=== PATIENT | male | born 1975 | race Caucasian/White ===

== ENCOUNTER 2025-01-15 19:12 | Emergency (ER) | payer BC, MEDICAID ==
--- NOTE | 2025-01-15 21:25 | Physician Documentation ---
HPI ~ General Chief Complaint: Medication Request Stated Complaint: "OPIATE WITHDRAWL AND BELLY CRAMP" Time Seen by MD: 20:53 History of Present Illness HPI Comments This 49-year-old male presented requesting refill of Suboxone prescription, patient additionally reports epigastric cramping, patient reports that epigastric cramping has been intermittent for the past several weeks, normally improves with Zofran and rest. Medication Reconciliation Allergies: Coded Allergies: No Known Allergies (Unverified , 01/15/25) Scheduled Famotidine (Famotidine), 1 TAB PO Q12H Scheduled PRN ONDANSETRON ODT 4mg tablet (Ondansetron Odt), 1 TAB PO Q6H PRN PRN for nausea/vomiting Past Medical History Past Medical History: No Pertinent History Drug Use: other (Opioids) Review of Systems ROS As stated above in the HPI, otherwise all systems are reviewed and negative. Physical Exam Physical Exam Vital Signs: Temperature: 98.2, Source: Oral, Heart Rate: 60, Respiratory Rate: 18, BP: 141/81, Pulse Oximetry: 100 Oxygen Flow Rate: 0 Physical Exam VITALS: Reviewed and as above. GENERAL: Alert, nontoxic appearing, no apparent distress. RESPIRATORY: No increased work of breathing, no respiratory distress, speaking in full clear sentences, lung sounds in all [place] CV: Regular rate and rhythm no murmur BACK: No CVA tenderness GI: Nondistended, soft, nontender, no rebound, no guarding bowel sounds present Progress Results/Orders Results/Orders Orders - ROMI NEWTON Substance Use Navigator (01/15/25 21:12) Completed Orders - ROMI NEWTON Ondansetron Disint. Tablet (Zofran Odt T (01/15/25 21:10) Famotidine Tablet (Pepcid Tablet) (01/15/25 21:10) Mag & Alum Hydrox/Simeth Susp (Maalox Or (01/15/25 21:10) Buprenorphine/Naloxone Sl Film (Suboxone (01/15/25 21:10) Medications Received in ER Medications (Trade) Dose Ordered Sig/Mynor Route PRN Reason Start Time Stop Time Status Last Admin Dose Admin (Zofran ODT tablet) 4 mg ONCE ONCE PO 01/15/25 21:10 01/15/25 21:13 DC 01/15/25 21:31 4 MG (Pepcid tablet) 20 mg ONCE ONCE PO 01/15/25 21:10 01/15/25 21:13 DC 01/15/25 21:31 20 MG (Maalox oral suspension) 30 ml ONCE ONCE PO 01/15/25 21:10 01/15/25 21:13 DC 01/15/25 21:31 30 ML (Suboxone 8MG-2MG SL film) 1 film ONCE ONCE SL 01/15/25 21:10 01/15/25 21:13 DC 01/15/25 21:31 1 FILM Vital Signs 01/15/25 01/15/25 01/15/25 19:17 19:57 21:51 Temp 98.2 98.6 Pulse 78 60 59 Resp 16 18 16 B/P (MAP) 141/86 141/81 (101) 138/78 Pulse Ox 98 100 99 O2 Flow Rate 0 Medical Decision Making Findings This is a 49-year-old male presented requesting refill of Suboxone prescription, though cures report indicates patient currently has active prescription for Suboxone therefore refill will not be provided. Patient reported additional concern for upper abdominal cramping though this appears to be minor pain has been ongoing symptom for some time which patient is previously been seen for, physical exam did not demonstrate evidence of abdominal tenderness on exam making suspicion for intra-abdominal process low, patient is well-appearing with benign physical exam. Due to patient reporting abdominal symptoms decreasing after treatment with Zofran he will be provided dose of Zofran and antacid. Vital signs stable and patient is appropriate for outpatient follow up. Patient advised to follow up in the next few days with his primary care provider or [facility] and a referral was made to our substance use navigator. Patient provided return to care precautions. Patient verbalized understanding of follow up instructions and return to care precautions. Differential Dx:Considerations: Include: Adverse circumstances, Economic, Psychosocial, Medical services unavail., Medication refill, Medication non- compliance, Other (Gastritis, appendicitis, cholecystitis, pancreatitis, appendicitis, PUD, GERD) Departure Disposition: HOME / SELF CARE / HOMELESS Impression: Primary Impression: Medication refill Additional Impression: Epigastric pain Condition: Improved Discharge Instructions: Abdominal Pain, Adult, [id number] Additional Instructions: Unfortunately it appears you have an active Suboxone prescription so I am unable to refill this prescription at the moment. Please use the prescribed Zofran and antacids for epigastric pain. Please follow up with the primary care provider or [facility] in the next few days. Please return to the emergency department for any new or worsening concerning symptoms. Referrals: NO PRIMARY CARE PROVIDER (PCP) Prescriptions Famotidine (Famotidine) 20 Mg Tablet 1 TAB PO Q12H for 15 Days, #30 TAB 0 Refills Prov: ROMI NEWTON 01/15/25 ONDANSETRON ODT 4mg tablet (ONDANSETRON ODT) 4 Mg Tab.rapdis 1 TAB PO Q6H PRN PRN for nausea/vomiting for 4 Days, #16 TAB 0 Refills Prov: ROMI NEWTON 01/15/25 Education Educated: Patient Educated regarding: diagnosis, treatment, prognosis, need for follow up Signature Scribe Signature: No scribe Attestation: The note accurately reflects work and decisions made by me.SERA Collier 01/16/25 01:57 ROMI NEWTON Jan 15, 2025 21:25
[2025-01-15] MEDS ORDERED: FAMO-49 PO (21:27)
[2025-01-15] MEDS ORDERED: ONDA-243 PO (21:27)
[2025-01-15] MEDS: ondansetron 4mg rapidly disintigrating tab PO ONE (21:31)
[2025-01-15] MEDS: mag hydrox/Alum hydrox/simeth 30ml oral suspension PO ONE (21:31)
[2025-01-15] MEDS: famotidine 20mg tablet PO ONE (21:31)
[2025-01-15] MEDS: buprenorphine/naloxone 8MG-2MG SUBlingual film SL ONE (21:31)
[2025-01-15 21:51] VITALS: BP 138/78; PULSE 59; RESP 16; TEMP 98.6; O2SAT 99
[2025-01-17] MEDS ORDERED: SULF1TAB45 PO (15:52)
[2025-01-17] MEDS ORDERED: BUPR1FIL20 SL (15:52)
[2025-01-17] MEDS ORDERED: NALO4SPR22 BOTHNARES (15:52)
== END 2025-01-15 21:52 | disposition home or self-care (01) ==
LOC: ER 19:14
DX: R10.13 Epigastric pain (principal); Z76.0 Encounter for issue of repeat prescription
CPT/HCPCS: 99284

== ENCOUNTER → 2025-01-17 | Emergency (ER) | payer BC, MEDICAID ==
[~2025-01-17] VITALS: Ht 188 cm; Wt 75.8 kg
[~2025-01-17] MED LIST: BUPR1FIL20 SL; FAMO-49 PO; NALO4SPR22 BOTHNARES; ONDA-243 PO; SULF1TAB45 PO
[2025-01-17 14:47] VITALS: BP 130/74; PULSE 76; RESP 18; O2SAT 95
--- NOTE | 2025-01-17 15:06 | Physician Documentation ---
HPI ~ General Chief Complaint: Medication Request Stated Complaint: BUG BITE Time Seen by MD: 15:11 History of Present Illness HPI Comments This 49-year-old male with a history of opioid dependence presents back to the emergency department requesting Suboxone prescription and a dose of Suboxone as he is experiencing withdrawal symptoms. Patient was seen earlier this week for the same concern though was unable to have a prescription sent as he had active prescription for Suboxone and was directed to follow up with his MAT provider or [facility]. Patient additionally reported concern for a mosquito bite on his arm he believes is getting infected. Medication Reconciliation Allergies: Coded Allergies: No Known Allergies (Unverified , 01/15/25) Scheduled Buprenorphine HCl/Naloxone HCl (Buprenorphine-Nalox 8-2Mg Film), 1 STRIP SL DAILY Famotidine (Famotidine), 1 TAB PO Q12H Naloxone HCl (Naloxone HCl), 1 SPR BOTHNARES ONCE Sulfamethoxazole/Trimethoprim (Septra Ds Tab), 1 TAB PO Q12H Scheduled PRN ONDANSETRON ODT 4mg tablet (Ondansetron Odt), 1 TAB PO Q6H PRN PRN for nausea/vomiting Past Medical History Past Medical History: No Pertinent History Drug Use: other Review of Systems ROS Suboxone request and painful swollen area as stated above in the HPI, otherwise all systems are reviewed and negative. Physical Exam Physical Exam Vital Signs: Temperature: 98.4, Source: Temporal, Heart Rate: 76, Respiratory Rate: 18, BP: 130/74, Pulse Oximetry: 95, Weight: 75.800 Oxygen Flow Rate: 0 Physical Exam VITALS: Reviewed and as above. GENERAL: Alert, nontoxic appearing, no apparent distress. RESPIRATORY: No increased work of breathing, no respiratory distress, speaking in full clear sentences SKIN: Abrasion with 1 cm area of erythema and induration to dorsal aspect of right forearm without fluctuance or discharge Progress Results/Orders Results/Orders Orders - ROMI NEWTON Substance Use Navigator (01/17/25 15:37) Completed Orders - ROMI NEWTON Sulfamethox/Trimetho. Ds Tab (Septra Ds (01/17/25 15:40) Buprenorphine/Naloxone Sl Film (Suboxone (01/17/25 15:40) Vital Signs 01/17/25 01/17/25 14:47 16:18 Temp 98.4 98.4 Pulse 76 Resp 18 B/P (MAP) 130/74 Pulse Ox 95 O2 Flow Rate 0 Medical Decision Making Findings This 49-year-old male presented requesting Suboxone due to opiate withdrawal symptoms, patient is noted to have been previously on Suboxone to treat opiate use disorder, cures report was run in indicated patient out of current prescription for Suboxone and will have this refilled until he can follow up with a MAT program for continued management, referral to substance use navigator made. Patient additionally reported concern for an area to his right arm that he believes began as a mosquito bite that has become infected, physical exam of this area did demonstrate a small area of erythema and induration without fluctuance consistent with furuncle or similar superficial skin infection, given patient's history of MRSA he will be started on oral course of Bactrim. Patient provided home care instructions, return to care precautions, and follow up instructions which he verbalized understanding of. I have discussed with the patient the risks of addiction and overdose associated with use of opioids, including the increased risk of addiction to an opioid for an individual who is suffering from both mental and substance abuse disorders. I have discussed with the patient the danger of taking an opioid with a benzodiazepine, alcohol, or another central nervous system depressant. Patient additionally provided prescription for Narcan. Differential Dx:Considerations: Include: Adverse circumstances, Medical services unavail., Medication refill, Other (Cellulitis, abscess, opioid withdrawal, ) Departure Disposition: 01 HOME / SELF CARE / HOMELESS Impression: Primary Impression: Furuncle of right forearm Additional Impressions: Medication refill History of opioid abuse Condition: Improved Additional Instructions: Please take the antibiotics as prescribed, keep your wound clean dry and covered. Please use the prescribed Suboxone help with your withdrawal symptoms, please follow up with [facility] or a MAT provider in the next few days. A referral has been made to our substance use navigator who may be able to help you with resources. Please follow up with your primary care provider or [facility] in the next few days. Please return to the emergency department for any new or worsening concerning symptoms. You have been prescribed an opioid medication, there are risks of addiction and overdose associated with the use of opioids. The risk of addiction to an opioid for increases for those suffering both from mental health and substance use disorders. The use of an opioid while taking other central nervous system depressants including but not limited to benzodiazepines or alcohol, or other opioids increases the risk of serious side effects that can include overdose or respiratory depression that can lead to serious injury or . Referrals: NO PRIMARY CARE PROVIDER (PCP) Prescriptions Sulfamethoxazole/Trimethoprim (Septra Ds Tab) 800 Mg/160 Mg Tablet 1 TAB PO Q12H for 7 Days, #14 TAB Prov: ROMI NEWTON 01/17/25 Naloxone HCl (Naloxone HCl) 4 Mg/Actuation [place] 1 SPR BOTHNARES ONCE for 1 Day, #1 EA Prov: ROMI NEWTON 01/17/25 Buprenorphine HCl/Naloxone HCl (Buprenorphine-Nalox 8-2Mg Film) 8 Mg-2 Mg Film 1 STRIP SL DAILY for 7 Days, #7 STRIP 0 Refills Prov: ROMI NEWTON 01/17/25 Education Educated: Patient Educated regarding: diagnosis, treatment, prognosis, need for follow up Additional Comment Medical Screen Exam History: This 49-year-old male with a history of opioid dependence presents back to the emergency department requesting Suboxone prescription a dose of Suboxone as he is experiencing withdrawal symptoms. Patient was seen earlier this week for the same concern though was unable to have a prescription sent as he had active prescription for Suboxone and was directed to follow up with his MAT provider. Patient additionally reported concern for a mosquito bite on his arm he believes is getting infected. Exam: VITALS: Reviewed and as above. GENERAL: Alert, nontoxic appearing, no apparent distress. RESPIRATORY: No increased work of breathing, no respiratory distress, speaking in full clear sentences MSE performed in triage and patient returned to ED lobby by nursing staff The note accurately reflects work and decisions made by me.SERA Collier 01/17/25 15:05 Signature Scribe Signature: No scribe Attestation: The note accurately reflects work and decisions made by me.SERA Collier 01/18/25 02:08 ROMI NEWTON Jan 17, 2025 15:06
[2025-01-17] MEDS: sulfamethoxazole/trimethoprim DS (800/160mg) tablet PO ONE (16:08)
[2025-01-17] MEDS: buprenorphine/naloxone 8MG-2MG SUBlingual film SL ONE (16:08)
[2025-01-17 16:18] VITALS: TEMP 98.4
== END | disposition home or self-care (01) ==
LOC: ER 14:42
DX: L02.423 Furuncle of right upper limb (principal); Z76.0 Encounter for issue of repeat prescription; F11.20 Opioid dependence, uncomplicated
CPT/HCPCS: 99283

== ENCOUNTER 2025-01-28 10:29 | Emergency (ER) | payer BC, MEDICAID ==
[~2025-01-28] VITALS: Ht 177.8 cm; Wt 79.5 kg
[~2025-01-28 10:29] MED LIST changes: -SULF1TAB45 PO
[2025-01-28 10:31] VITALS: BP 130/76; PULSE 78; RESP 18; TEMP 97.5; O2SAT 99
[2025-01-28] MEDS ORDERED: BUPR1FIL3 SL (10:34)
[2025-01-28] MEDS ORDERED: ONDA-245 PO (10:35)
--- NOTE | 2025-01-28 10:35 | Physician Documentation ---
HPI ~ General Chief Complaint: Medication Refill Stated Complaint: OPIOD WITHDRAWAL Time Seen by MD: 10:33 History of Present Illness HPI Comments 49 yr old male presents due to concerns for running out of his suboxone. Typically takes 8/2 one film BID. Has been unable to establish with PCP. Endorses nausea.No chills or fever or CP/dyspnea. Medication Reconciliation Allergies: Coded Allergies: No Known Allergies (Unverified , 01/28/25) Scheduled Buprenorphine HCl/Naloxone HCl (Buprenorphine-Nalox 8-2Mg Film), 1 STRIP SL DAILY Buprenorphine Hcl/Naloxone Hcl (Suboxone 8 Mg-2 Mg Sl Film), 1 STRIP SL BID Famotidine (Famotidine), 1 TAB PO Q12H Naloxone HCl (Naloxone HCl), 1 SPR BOTHNARES ONCE Scheduled PRN ONDANSETRON ODT 4mg tablet (Ondansetron Odt), 1 TAB PO Q6H PRN PRN for nausea/vomiting Ondansetron 8mg ODT (Ondansetron Odt), 1 TAB PO TID PRN for nausea/vomiting Discontinued Medications Sulfamethoxazole/Trimethoprim (Septra Ds Tab), 1 TAB PO Q12H Discontinued Reason: Auto Discontinued Past Medical History Past Medical History: No Pertinent History Drug Use: other Review of Systems ROS As stated above in the HPI, otherwise all systems are reviewed and negative. Physical Exam Physical Exam Vital Signs: Temperature: 97.5, Source: Temporal, Heart Rate: 78, Respiratory Rate: 18, BP: 130/76, Pulse Oximetry: 99, Weight: 79.550 Oxygen Flow Rate: 0 Physical Exam General: Alert, no apparent distress. Neck: Full range of motion. Respiratory: Lungs clear, no respiratory distress. Chest: No accessory muscle use. Cardiovascular: Regular rate and rhythm, no murmurs. Gastrointestinal: Soft, nontender, nondistended. Bowels sounds present. Extremities: Normal range of motion, no deformity. Neurologic: Oriented x4. Psychiatric: Normal mood and affect. Skin: Normal color, warm and dry. No edema, no ecchymosis. Progress Results/Orders Results/Orders Orders - MANDY SCHWAB NP Substance Use Navigator (01/28/25 10:51) Completed Orders - MANDY SCHWAB NP Ondansetron Disint. Tablet (Zofran Odt T (01/28/25 10:40) Buprenorphine/Naloxone Sl Film (Suboxone (01/28/25 10:40) Buprenorphine/Naloxone Sl Film (Suboxone (01/28/25 10:40) Medications Received in ER Medications (Trade) Dose Ordered Sig/Mynor Route PRN Reason Start Time Stop Time Status Last Admin Dose Admin (Zofran ODT tablet) 4 mg ONCE ONCE PO 01/28/25 10:40 01/28/25 10:41 DC 01/28/25 10:58 4 MG (Suboxone 8MG-2MG SL film) 1 film NOW ONCE SL 01/28/25 10:40 01/28/25 10:42 DC 01/28/25 10:59 1 FILM Vital Signs 01/28/25 10:31 Temp 97.5 Pulse 78 Resp 18 B/P (MAP) 130/76 Pulse Ox 99 O2 Flow Rate 0 Medical Decision Making Differential Dx:Considerations: Include: Adverse circumstances, Economic, Psychosocial, Medical services unavail., Medication refill, Medication non- compliance Departure Time of Disposition: 10:33 Disposition: HOME / SELF CARE / HOMELESS Impression: Primary Impression: History of opioid abuse Additional Impression: Medication refill Condition: Stable Discharge Instructions: Opioid Use Disorder, Opioid Withdrawal Referrals: NO PRIMARY CARE PROVIDER (PCP) Prescriptions Ondansetron 8mg ODT (Ondansetron Odt) 8 Mg Tab.rapdis 1 TAB PO TID PRN for nausea/vomiting, #10 TAB Prov: MANDY SCHWAB NP 01/28/25 Buprenorphine Hcl/Naloxone Hcl (Suboxone 8 Mg-2 Mg Sl Film) 8 Mg-2 Mg Film 1 STRIP SL BID for 10 Days, #20 STRIP Prov: MANDY SCHWAB NP 01/28/25 Education Educated: Patient Educated regarding: diagnosis, treatment, prognosis, need for follow up Signature Scribe Signature: no scribe Attestation: The note accurately reflects work and decisions made by me.Mandy Syed NP 01/28/25 11:11 MANDY SCHWAB NP Jan 28, 2025 10:35
[2025-01-28] MEDS ORDERED: buprenorphine/naloxone 8MG-2MG SUBlingual film SL SCH (10:40)
[2025-01-28] MEDS: ondansetron 4mg rapidly disintigrating tab PO ONE (10:58)
[2025-01-28] MEDS: buprenorphine/naloxone 8MG-2MG SUBlingual film SL ONE (10:59)
== END 2025-01-28 11:08 | disposition home or self-care (01) ==
LOC: ER 10:30
DX: F11.10 Opioid abuse, uncomplicated (principal); R11.0 Nausea; Z76.0 Encounter for issue of repeat prescription; Z79.899 Other long term (current) drug therapy
CPT/HCPCS: 99283

== ENCOUNTER 2025-02-26 10:29 | Emergency (ER) | payer BC, MEDICAID ==
[~2025-02-26] VITALS: Ht 188 cm; Wt 75.0 kg
[~2025-02-26 10:29] MED LIST changes: +ONDA-245 PO
[2025-02-26 10:38] VITALS: BP 128/60; PULSE 82; RESP 17; TEMP 98; O2SAT 98
== END 2025-02-26 14:15 | disposition left against medical advice (07) ==
LOC: ER 10:30
DX: R10.31 Right lower quadrant pain (principal); Z53.21 Procedure and treatment not carried out due to patient leaving prior to being seen by health care provider

== ENCOUNTER 2025-03-05 03:00 | Emergency (ER) | payer BC, MEDICAID ==
[~2025-03-05] VITALS: Ht 188 cm; Wt 51.8 kg
--- NOTE | 2025-03-05 04:41 | Physician Documentation ---
History of Present Illness ~ Chief Complaint: Narcotic Withdrawl Stated Complaint: WITHDRAWALS Time Seen by MD: 04:25 OK to notify your PCP?: Yes Source: patient, RN/MD, RN notes reviewed, old records Mode of Arrival: POV Exam Limitations: no limitations [facility] BED 04 This patient is a 50 y/o male who presents to ED with chief complaint of narcotic withdrawal. Patient reports that he has been taking Suboxone for opioid addiction treatment. Patient states he missed his last appointment at [facility], and they are now refusing to refill his Suboxone pr escription. Patient's next appointment is in two weeks. He reports his last dose of Suboxone was yesterday. He is now having some nausea, diarrhea, anxiety. No vomiting or fevers. Patient also complaining of a small, raised bump to his chin which he noticed yesterday, and states it has been getting more painful since then. No discharge or bleeding. Patient denies any other associated symptoms at this time. Patient denies any other alleviating or exacerbating factors. Medication Reconciliation Allergies: Coded Allergies: No Known Allergies (Unverified , 03/05/25) Scheduled Buprenorphine HCl/Naloxone HCl (Buprenorphine-Nalox 8-2Mg Film), 1 STRIP SL DAILY Buprenorphine Hcl/Naloxone Hcl (Suboxone 8 Mg-2 Mg Sl Film), 2 STRIP SL DAILY Famotidine (Famotidine), 1 TAB PO Q12H Naloxone HCl (Naloxone HCl), 1 SPR BOTHNARES ONCE Scheduled PRN ONDANSETRON ODT 4mg tablet (Ondansetron Odt), 1 TAB PO Q6H PRN PRN for nausea/vomiting ONDANSETRON ODT 4mg tablet (Ondansetron Odt), 1 TAB PO Q6H PRN PRN for nausea/vomiting Ondansetron 8mg ODT (Ondansetron Odt), 1 TAB PO TID PRN for nausea/vomiting Past Medical History Past Medical History: No Pertinent History Past Surgical History: noncontributory Smoking Status: Current every day smoker Alcohol Use: None Drug Use: other Review of Systems All Other Systems at this time: Reviewed and Negative Physical Exam Vital Signs: RN Vital Signs have been reviewed: Yes, Temperature: 97.6, Source: Temporal, Heart Rate: 71, Respiratory Rate: 15, BP: 127/69, Pulse Oximetry: 99, Weight: 51.800 Physical Exam General: The patient is well developed, well nourished, nontoxic appearing and is in no acute distress. Skin: Ingrown hair noted to chin. [place], warm and dry with no rashes. HEENT: Head was normocephalic and atraumatic. Eyes - pupils equal, round, reactive to light and accommodation. Extraocular movements were intact. Conjunctivae were nonicteric. The mouth and oropharynx were clear with moist mucous membranes. There were no pharyngeal exudates or erythema. Neck: Supple and nontender. There was no jugular venous distention, lymphadenopathy, thyromegaly or masses. Chest: Trace wheezing on auscultation. Otherwise no rales or rhonchi. No accessory muscle use. No dullness to percussion. Heart: Rate regular and rhythmic. S1, S2. No murmurs. Palpation of the chest wall was normal. No rubs or thrills. Abdomen: Soft, nontender and nondistended. Positive bowel sounds. No guarding or rebound. No hepatosplenomegaly or palpable masses. Extremities: No cyanosis, clubbing or edema. The patient moves all extremities. Pulses were equal and symmetric. Neurologic: Motor and sensation grossly intact. A & O x4. Psychologic: The patient was oriented to person, place and time. Progress Results/Orders Reviewed/noted all lab results: Yes Results/Orders Completed Orders - JCARLOS JIMENEZ MD Ondansetron Disint. Tablet (Zofran Odt T (03/05/25 04:50) Buprenorphine/Naloxone Sl Film (Suboxone (03/05/25 04:50) Medications Received in ER Medications (Trade) Dose Ordered Sig/Mynor Route PRN Reason Start Time Stop Time Status Last Admin Dose Admin (Zofran ODT tablet) 4 mg ONCE ONCE PO 03/05/25 04:50 03/05/25 04:51 DC 03/05/25 05:06 4 MG (Suboxone 8MG-2MG SL film) 2 film ONCE ONCE SL 03/05/25 04:50 03/05/25 04:54 DC 03/05/25 05:07 2 FILM Vital Signs 03/05/25 03/05/25 03:03 05:09 Temp 97.6 97.8 Pulse 71 76 Resp 15 16 B/P (MAP) 127/69 136/86 Pulse Ox 99 98 Re-Evaluation Re-Evaluation : Re-Evaluation: Improved Progress Patient was seen and examined. Patient is given reassurance. Patient was given Zofran as well as Suboxone. Patient states he takes three strips. Patient was given to [facility] and a prescription for the same. Patient has not appointment in weak with his pain management physicians. Patient was given a prescription also for the same including Zofran. Patient was then discharged home. He states he did have some diarrhea but no bile erection no vomiting he is tolerating a meal. Medical Decision Making Additional info obtained from: old records Differential Dx:Considerations: Include: Delerium tremens, Hallucinosis, Seizures, Anticholinergic poisoning, CVA, Dehydration, Depression, Drug induced psychosis, Electolyte imbalance, Encephalitis, Encephalopathy, Intoxication- alcohol, Intoxication-other drug, Medical noncompliance, Personality disorder, Schizophrenia, Seizure disorder, Substance abuse disorder, Thiamine deficiency, Thyrotoxicosis, Other Departure Time of Disposition: 04:44 Disposition: 01 HOME / SELF CARE / HOMELESS Impression: Primary Impression: Narcotic withdrawal Additional Impressions: Medication refill Ingrown hair Condition: Stable Discharge Instructions: Narcotic Withdrawal Additional Instructions: Take medications as prescribed. Keep next appointment to sure that you can obtain future refills of your Suboxone. Referrals: NO PRIMARY CARE PROVIDER (PCP) Prescriptions Buprenorphine Hcl/Naloxone Hcl (Suboxone 8 Mg-2 Mg Sl Film) 8 Mg-2 Mg Film 2 STRIP SL DAILY for 15 Days, #30 STRIP Prov: JCARLOS JIMENEZ MD 03/05/25 ONDANSETRON ODT 4mg tablet (ONDANSETRON ODT) 4 Mg Tab.rapdis 1 TAB PO Q6H PRN PRN for nausea/vomiting for 4 Days, #16 TAB 0 Refills Prov: JCARLOS JIMENEZ MD 03/05/25 Naloxone HCl (Naloxone HCl) 4 Mg/Actuation [place] 1 SPR BOTHNARES ONCE for 1 Day, #1 EA Prov: JCARLOS JIMENEZ MD 03/05/25 Education Educated: Patient Educated regarding: diagnosis, treatment, need for follow up Signature Scribe Signature: Scribed for Jcarlos Jimenez MD by Anita Newton 03/05/25 04:44 Attestation: The note accurately reflects work and decisions made by me.Jcarlos Jimenez MD 03/05/25 05:43 JCARLOS JIMENEZ MD Mar 05, 2025 04:41
[2025-03-05] MEDS ORDERED: BUPR1FIL3 SL (04:50)
[2025-03-05] MEDS ORDERED: ONDA-243 PO (04:50)
[2025-03-05] MEDS ORDERED: buprenorphine/naloxone 8MG-2MG SUBlingual film SL SCH (04:50)
[2025-03-05] MEDS ORDERED: NALO4SPR22 BOTHNARES (04:50)
[2025-03-05] MEDS: ondansetron 4mg rapidly disintigrating tab PO ONE (05:06)
[2025-03-05] MEDS: buprenorphine/naloxone 8MG-2MG SUBlingual film SL ONE (05:07)
[2025-03-05 05:09] VITALS: BP 136/86; PULSE 76; RESP 16; TEMP 97.8; O2SAT 98
== END 2025-03-05 05:12 | disposition home or self-care (01) ==
LOC: ER 03:01
DX: F11.23 Opioid dependence with withdrawal (principal); L73.1 Pseudofolliculitis barbae; Z76.0 Encounter for issue of repeat prescription; F17.200 Nicotine dependence, unspecified, uncomplicated; F41.9 Anxiety disorder, unspecified; Z79.899 Other long term (current) drug therapy
CPT/HCPCS: 99283

== ENCOUNTER 2025-03-23 02:56 | Emergency (ER) | payer BC, MEDICAID ==
[~2025-03-23] VITALS: Ht 185.4 cm; Wt 56.1 kg
[2025-03-23] MEDS ORDERED: TRIA15CR61 TOP (03:52)
--- NOTE | 2025-03-23 03:52 | Physician Documentation ---
History of Present Illness ~ Chief Complaint: Rash Stated Complaint: STOMACH PAINS/WITHDRAWALS/BUMPS ON LEGS Time Seen by MD: 03:45 HPI Patient presents to the emergency room with rash to his lower extremities over the past few days. He is concerned that it may be related to possible bug bites. He does endorse poison oak exposure as well. Taking Benadryl with limited benefit. Medication Reconciliation Allergies: Coded Allergies: No Known Allergies (Unverified , 03/23/25) Scheduled Buprenorphine HCl/Naloxone HCl (Buprenorphine-Nalox 8-2Mg Film), 1 STRIP SL DAILY Famotidine (Famotidine), 1 TAB PO Q12H Naloxone HCl (Naloxone HCl), 1 SPR BOTHNARES ONCE Scheduled PRN ONDANSETRON ODT 4mg tablet (Ondansetron Odt), 1 TAB PO Q6H PRN PRN for nausea/vomiting ONDANSETRON ODT 4mg tablet (Ondansetron Odt), 1 TAB PO Q6H PRN PRN for nausea/vomiting Ondansetron 8mg ODT (Ondansetron Odt), 1 TAB PO TID PRN for nausea/vomiting Discontinued Medications Buprenorphine Hcl/Naloxone Hcl (Suboxone 8 Mg-2 Mg Sl Film), 2 STRIP SL DAILY Discontinued Reason: Auto Discontinued Past Medical History Past Medical History: No Pertinent History Past Surgical History: noncontributory Alcohol Use: None Drug Use: other Review of Systems ROS All review of systems negative except as per HPI Physical Exam Vital Signs: Temperature: 97.6, Heart Rate: 88, Respiratory Rate: 15, BP: 120/65, Pulse Oximetry: 98, Weight: 56.100 Physical Exam General: Patient is awake, alert, oriented x4 in no acute distress Head: Normocephalic and atraumatic. Eyes: Conjunctival normal. EOMI. PERRL. ENT: Mucous membranes moist. Neck: Supple, trachea is midline. Chest: Clear to auscultation bilaterally without rales, rhonchi, or wheezes. There is no accessory muscle use or retractions. Cardiac: RRR without murmurs, gallops, or rubs. Abd: Soft, nondistended, nontender, with normoactive bowel sounds. No guarding, rebound, or rigidity. Skin: Excoriations noted to bilateral lower extremities. No blistering or cellulitis Progress Results/Orders Results/Orders Vital Signs 03/23/25 03:02 Temp 97.6 Pulse 88 Resp 15 B/P (MAP) 120/65 Pulse Ox 98 Medical Decision Making Findings Patient presents to the emergency room with pruritic rash. Differentials include but are not limited to insect bites, poison oak, contact dermatitis, medication reaction. Unknown cause for patient's symptoms. We will treat him empirically for poison oak. Although considered, no bedbugs has been seen and distribution that has not consistent with scabies. Departure Disposition: HOME / SELF CARE / HOMELESS Impression: Primary Impression: Allergic contact dermatitis Condition: Stable Discharge Instructions: Contact Dermatitis Referrals: NO PRIMARY CARE PROVIDER (PCP) Prescriptions Triamcinolone Acetonide 0.5% Crm* (Kenalog 0.5% Crm*) 15 Gm Tube 1 APPLIC TOP Q12H for 30 Days, #15 GM apply to affected area(s). Avoid contact with the genitals or eyelids Prov: JAQUAN AWAD MD 03/23/25 Education Educated: Patient Educated regarding: diagnosis, treatment, need for follow up Signature Scribe Signature: No scribe Attestation: The note accurately reflects work and decisions made by me.Jaquan Awad MD 03/23/25 03:52 JAQUAN AWAD MD Mar 23, 2025 03:52
[2025-03-23 04:08] VITALS: BP 120/68; PULSE 82; RESP 18; TEMP 97.4; O2SAT 98
[2025-03-23] MEDS: buprenorphine/naloxone 8MG-2MG SUBlingual film SL ONE (04:30)
== END 2025-03-23 04:31 | disposition home or self-care (01) ==
LOC: ER 02:56
DX: L23.7 Allergic contact dermatitis due to plants, except food (principal)
CPT/HCPCS: 99283

== ENCOUNTER 2025-04-01 08:58 | Emergency (ER) | payer BC, MEDICAID ==
[~2025-04-01] VITALS: Ht 188 cm; Wt 81.8 kg
[~2025-04-01 08:58] MED LIST changes: +TRIA15CR61 TOP
[2025-04-01 09:03] VITALS: BP 151/84; TEMP 98.5
--- NOTE | 2025-04-01 10:28 | Physician Documentation ---
History of Present Illness ~ General Chief Complaint: Multiple Medical Complaints Stated Complaint: POISON OAK Time Seen by MD: 10:02 OK to notify your PCP?: Yes Source: patient Mode of Arrival: POV Exam Limitations: no limitations History of Present Illness Initial Comments 50-year-old male with chief complaint itchy rash on his legs arms and back which he states has almost resolved but he is out of the steroid cream and he is not sure if he needs this to be refilled. He states the itching is virtually 90% better. He is concerned about the rash behind his left knee as he states it has gotten a little swollen and he is concerned that there is an infection that has coming in. No fever, pain. Patient also reports a bulge in his right groin which has been there for quite some time but recently it has gotten painful when his dog steps on the area or if there is any other direct pressure to the area. There was no overlying redness. He has had this bulge for years but states just getting larger and recently became painful with pressure to area. He does have a primary care provider but has not been seen for this. Medication Reconciliation Allergies: Coded Allergies: No Known Allergies (Unverified , 04/01/25) Scheduled Buprenorphine HCl/Naloxone HCl (Buprenorphine-Nalox 8-2Mg Film), 1 STRIP SL DAILY Famotidine (Famotidine), 1 TAB PO Q12H Naloxone HCl (Naloxone HCl), 1 SPR BOTHNARES ONCE Triamcinolone Acetonide 0.5% Crm* (Kenalog 0.5% Crm*), 1 APPLIC TOP Q12H Scheduled PRN ONDANSETRON ODT 4mg tablet (Ondansetron Odt), 1 TAB PO Q6H PRN PRN for nausea/vomiting ONDANSETRON ODT 4mg tablet (Ondansetron Odt), 1 TAB PO Q6H PRN PRN for nausea/vomiting Ondansetron 8mg ODT (Ondansetron Odt), 1 TAB PO TID PRN for nausea/vomiting Past Medical History Past Medical History: No Pertinent History Past Surgical History: noncontributory Alcohol Use: None Drug Use: other Review of Systems All Other Systems at this time: Reviewed and Negative Physical Exam Physical Exam Vital Signs: Temperature: 98.5, Source: Oral, Heart Rate: 66, Respiratory Rate: 18, BP: 151/84, Pulse Oximetry: 99, Weight: 81.820 Physical Exam GENERAL: Alert, no acute distress. HEENT: NCAT, EOMI, PERRL, moist oral mucosa. NECK: Supple, trachea midline. CARDIAC: Regular rate and rhythm, no murmurs, rubs, or gallops. Equal distal pulses. No lower extremity edema, cap refill less than 2 seconds. RESPIRATORY: Equal breath sounds, clear to auscultation bilaterally, no respiratory distress. GASTROINTESTINAL: RIGHT GROIN LARGE BULGE NO ERYTHEMA OR WARTH, AREA IS SOFT, TTP, NOT REDUCIBLE. LYMPH: NO FEMORAL LAD. MUSCULOSKELETAL: Normal range of motion, nontender, no swelling. Normal gait. NEUROLOGICAL: Awake, alert, and oriented x 3. SKIN: Warm/dry, no pallor, MACULAR ERYTHEMATOUS RASH BEHIND LEFT KNEE MEASURING ABOUT 3CM IN LENGTH AND OTHER SCATTERED STREAKY MACULOPAPULAR ERYTHEMATOUS RASHES ON EXTREMITIES. PSYCH: Alert and appropriate. Affect congruent with mood. Speech is clear. Good eye contact. Progress Results/Orders Results/Orders Vital Signs 04/01/25 09:03 Temp 98.5 Pulse 66 Resp 18 B/P (MAP) 151/84 Pulse Ox 99 Medical Decision Making Differential Diagnosis THE BULGE AND PATIENT'S GROIN IS CONSISTENT WITH A HERNIA THERE WAS NO EVIDENCE FOR STRANGULATION THE AREA IS SOFT, NO OVERLYING ERYTHEMA AND ONLY TENDER WITH PALPATION. SKIN FINDINGS ON EXAM IN DIFFERENTIAL IS SCABIES, ABSCESS, CELLULITIS, CONTACT DERMATITIS, ECZEMA, AUTOIMMUNE. PATIENT HAS NO EVIDENCE FOR ANY OF THE ABOVE. HE HAS SCATTERED SORES AND AREAS THAT ARE RESOLVING FROM HIS RECENT CONTACT DE RMATITIS. Departure Time of Disposition: Disposition: 01 HOME / SELF CARE / HOMELESS Impression: Primary Impression: Allergic contact dermatitis Qualified Codes: L23.7 - Allergic contact dermatitis due to plants, except food Additional Impression: Hernia Condition: Stable Discharge Instructions: General Discharge Instructions Additional Instructions: The itching has almost resolved and I would not recommend continued steroid cream if the itching has virtually resolved as steroids can cause thinning of the skin with prolonged use and your itching has virtually resolved For the areas where you have small breaks in the skin you can clean them them with hibiclens to prevent from getting infection I do not appreciate any infection at this time and thus oral antibiotics not needed The hibiclens can also cause itching of the skin if you over do it so please use sparingly RE: YOUR LARGE HERNIA THAT IS INCARCERATED.....THERE IS NO INDICATION TODAY THAT NEEDS TO BE SURGICALLY FIXED TODAY; HOWEVER, YOU NEED TO GET TO REFERRAL BY YOUR PCP. CONSIDERING THE HERNIA IS VERY OBVIOUS ON EXAM, YOU DO NOT NEED IMAGING. HAVE REFERRAL PLACED TO [facility] [place] THAT TAKES YOUR INSURANCE. DR. JORDAN IS A SURGEON WHO TAKES YOUR INSURANCE AND WOULD NOT REQUIRE IMAGING TO BE ASSOCIATED WITH THE REFERRAL AND YOUR PCP CAN SEND THIS REFERRAL OR TO ANOTHER PCP. Referrals: NO PRIMARY CARE PROVIDER (PCP) Prescriptions Chlorhexidine Gluconate (Hibiclens) 4 % Liquid 1 EA TOP DAILY for 7 Days, #3785.41 ML 0 Refills DIRECTED Prov: DELMAR POSEY 04/01/25 Education Educated: Patient Educated regarding: diagnosis, treatment, need for follow up Signature Scribe Signature: X Attestation: DELMAR HONEYCUTT Apr 01, 2025 10:28
[2025-04-01] MEDS ORDERED: CHLO118L TOP (10:29)
[2025-04-01 11:01] VITALS: PULSE 68; RESP 18; O2SAT 98
== END 2025-04-01 11:02 | disposition home or self-care (01) ==
LOC: ER 08:58
DX: L23.7 Allergic contact dermatitis due to plants, except food (principal); K46.9 Unspecified abdominal hernia without obstruction or gangrene
CPT/HCPCS: 99282

== ENCOUNTER 2025-04-27 13:59 | Emergency (ER) | payer BC, MEDICAID ==
[~2025-04-27] VITALS: Ht 188 cm; Wt 81.8 kg
[~2025-04-27 13:59] MED LIST changes: +CHLO118L TOP; -TRIA15CR61 TOP
[2025-04-27 14:13] VITALS: BP 142/76; PULSE 87; RESP 16; O2SAT 98
--- NOTE | 2025-04-27 16:22 | Physician Documentation ---
History of Present Illness General Chief Complaint: Bite-insect Stated Complaint: FACE WOUND Time Seen by MD: 14:52 History of Present Illness Initial Comments 50-year-old male otherwise healthy the medial competent presents to the emergency department for evaluation of a chin lesion. Reports it began as a bug bite developed redness and swelling and then began having some pustule type d ischarge. Addition develop the same lesion on his back. Wonders if he has a staph infection. Medication Reconciliation Allergies: Coded Allergies: No Known Allergies (Unverified , 04/27/25) Scheduled Buprenorphine HCl/Naloxone HCl (Buprenorphine-Nalox 8-2Mg Film), 1 STRIP SL DAILY Chlorhexidine Gluconate (Hibiclens), 1 EA TOP DAILY Doxycycline Monohydrate (Doxycycline Monohydrate), 100 MG PO BID Famotidine (Famotidine), 1 TAB PO Q12H Mupirocin* (Bactroban*), 1 APPLIC TOP Q8H Naloxone HCl (Naloxone HCl), 1 SPR BOTHNARES ONCE Scheduled PRN ONDANSETRON ODT 4mg tablet (Ondansetron Odt), 1 TAB PO Q6H PRN PRN for nausea/vomiting ONDANSETRON ODT 4mg tablet (Ondansetron Odt), 1 TAB PO Q6H PRN PRN for nausea/vomiting Ondansetron 8mg ODT (Ondansetron Odt), 1 TAB PO TID PRN for nausea/vomiting Discontinued Medications Triamcinolone Acetonide 0.5% Crm* (Kenalog 0.5% Crm*), 1 APPLIC TOP Q12H Discontinued Reason: Auto Discontinued Past Medical History Past Medical History: No Pertinent History Past Surgical History: noncontributory Alcohol Use: None Drug Use: other Review of Systems All Other Systems at this time: Reviewed and Negative Constitutional: Denies: fever, chills Integ: Reports: rash Integumentary Erythemic with pustule Physical Exam Physical Exam Vital Signs: Temperature: 97.3, Source: Temporal, Heart Rate: 87, Respiratory Rate: 16, BP: 142/76, Pulse Oximetry: 98, Weight: 81.820 General Appearance: alert, WD/WN Head: normal inspection Pupils/EOM/Fundus: PERRLA Respiratory: no respiratory distress Cardiovascular: normal peripheral pulses Back: other Extremities: normal range of motion Neurologic: oriented x4 Motor / Sensory: no motor deficit Skin: normal color, rash, pustular rash (Pustular rash with erythema of the chin and back) Progress Results/Orders Results/Orders Vital Signs 04/27/25 04/27/25 14:13 17:09 Temp 97.3 97.3 Pulse 87 Resp 16 B/P (MAP) 142/76 Pulse Ox 98 Medical Decision Making Differential Diagnosis Examination and history consistent with impetigo. We will go ahead and begin Bactroban and Departure Disposition: HOME / SELF CARE / HOMELESS Impression: Primary Impression: Impetigo Condition: Improved Discharge Instructions: Impetigo, Adult Additional Instructions: Examination & history is consistent with impetigo. Please apply topical warm moist soaks and ointment along with begin the oral antibiotic. Make follow up appointment with the primary care physician and return to the emergency department as needed. Thank you for visiting [facility]. Referrals: NO PRIMARY CARE PROVIDER (PCP) Prescriptions Doxycycline Monohydrate (Doxycycline Monohydrate) 100 Mg Capsule 100 MG PO BID, #20 CAP may sub doxycycline hyclate or azithromycin z-pack as prescribed Prov: ALFONSO CURRAN 04/27/25 Mupirocin* (Bactroban*) 22 Gm Tube 1 APPLIC TOP Q8H for 7 Days, #22 GM apply to affected area(s) Prov: ALFONSO CURRAN 04/27/25 Education Educated: Patient Educated regarding: diagnosis Signature Scribe Signature: . Attestation: . ALFONSO CURRAN Apr 27, 2025 16:22
[2025-04-27] MEDS ORDERED: DOXY100C43 PO (16:28)
[2025-04-27] MEDS ORDERED: MUPI22OI30 TOP (16:28)
[2025-04-27 17:09] VITALS: TEMP 97.3
== END 2025-04-27 17:11 | disposition home or self-care (01) ==
LOC: ER 13:59
DX: L01.00 Impetigo, unspecified (principal); Z79.899 Other long term (current) drug therapy
CPT/HCPCS: 99283

== ENCOUNTER 2025-05-10 17:29 | Emergency (ER) | payer MEDICARE, MEDICAID ==
[~2025-05-10] VITALS: Ht 188 cm; Wt 75.7 kg
[~2025-05-10 17:29] MED LIST changes: +DOXY100C43 PO
[2025-05-10 17:37] VITALS: BP 143/82; PULSE 80; RESP 18; O2SAT 99
--- NOTE | 2025-05-10 17:54 | Physician Documentation ---
History of Present Illness ~ Chief Complaint: Rash Stated Complaint: SPIDER BITE Time Seen by MD: 17:48 HPI This is a 50-year-old male who presents with a pruritic rash to his upper chest and several areas of raised itchy bumps on his forearms and back. Patient reports onset of symptoms yesterday after using a string tremor to clear brush. Patient reports no other acute symptoms or concerns. Medication Reconciliation Allergies: Coded Allergies: No Known Allergies (Unverified , 05/10/25) Scheduled Buprenorphine HCl/Naloxone HCl (Buprenorphine-Nalox 8-2Mg Film), 1 STRIP SL GURINDER LY Chlorhexidine Gluconate (Hibiclens), 1 EA TOP DAILY Doxycycline Monohydrate (Doxycycline Monohydrate), 100 MG PO BID Famotidine (Famotidine), 1 TAB PO Q12H Naloxone HCl (Naloxone HCl), 1 SPR BOTHNARES ONCE Triamcinolone Acetonide 0.1% Crm* (Kenalog 0.1% Crm*), 1 APPLIC TOP Q12H Scheduled PRN ONDANSETRON ODT 4mg tablet (Ondansetron Odt), 1 TAB PO Q6H PRN PRN for jeff sea/vomiting ONDANSETRON ODT 4mg tablet (Ondansetron Odt), 1 TAB PO Q6H PRN PRN for nausea/vomiting Ondansetron 8mg ODT (Ondansetron Odt), 1 TAB PO TID PRN for nausea/vomiting Discontinued Medications Mupirocin* (Bactroban*), 1 APPLIC TOP Q8H Discontinued Reason: Auto Discontinued Past Medical History Past Medical History: No Pertinent History Past Surgical History: noncontributory Alcohol Use: None Drug Use: other Review of Systems ROS As stated above in the HPI, otherwise all systems are reviewed and negative. Physical Exam Vital Signs: Temperature: 97.3, Heart Rate: 80, Respiratory Rate: 18, BP: 143/82, Pulse Oximetry: 99, Weight: 75.700 Oxygen Flow Rate: 0 Physical Exam VITALS: Reviewed and as above. GENERAL: Alert, nontoxic appearing, no apparent distress. RESPIRATORY: No increased work of breathing, no respiratory distress, speaking in full clear sentences SKIN: Diffuse mildly raised erythematous papular rash to upper right chest, several pruritic papules scattered to bilateral forearms right abdomen, and right upper back Progress Results/Orders Results/Orders Completed Orders - ROMI NEWTON Hydroxyzine Tablet (Atarax Tablet) (05/10/25 17:50) Medications Received in ER Medications (Trade) Dose Ordered Sig/Mynor Route PRN Reason Start Time Stop Time Status Last Admin Dose Admin (Atarax tablet) 25 mg ONCE ONCE PO 05/10/25 17:50 05/10/25 17:51 DC 05/10/25 18:10 25 MG Vital Signs 05/10/25 05/10/25 17:37 18:24 Temp 97.3 97.3 Pulse 80 Resp 18 B/P (MAP) 143/82 Pulse Ox 99 O2 Flow Rate 0 Medical Decision Making Findings This 50-year-old male presented with a rash to his upper right chest and several areas of pruritic papules to bilateral forearms, abdomen, and trunk. Given symptoms onset after use of string tremor to clear brush I suspect uncomplicated contact dermatitis however a component of insect bite may also be present, as treatment would be similar patient will be medicated for pruritus in the emergency department and discharged with a prescription for topical steroid. Patient is otherwise well-appearing with no other acute symptoms or concerns and appropriate for outpatient follow up. Differential Dx:Considerations: Include: Abscess, Atopic dermatitis, Candidiasis, Contact dermatitis, Drug reaction, Erysipelas, Gangrene, Herpes zo ster, Herpes simplex, Pediculosis, Psoriaisis, Scabies, Tinea, Urticaria, Other (Insect bite) Departure Time of Disposition: 17:54 Disposition: 01 HOME / SELF CARE / HOMELESS Impression: Primary Impression: Allergic contact dermatitis Qualified Codes: L23.9 - Allergic contact dermatitis, unspecified cause Condition: Improved Discharge Instructions: Contact Dermatitis Additional Instructions: Please use the prescribed steroid cream on the affected area. Please follow up with your primary care provider in the next few days. Please return to the emergency department for any new or worsening concerning symptoms. Referrals: NO PRIMARY CARE PROVIDER (PCP) Prescriptions Triamcinolone Acetonide 0.1% Crm* (Kenalog 0.1% Crm*) 1 Applic Tube 1 APPLIC TOP Q12H for 10 Days, #80 GM Prov: ROMI NEWTON 05/10/25 Education Educated: Patient Educated regarding: diagnosis, treatment, prognosis, need for follow up Signature Scribe Signature: No scribe Attestation: The note accurately reflects work and decisions made by me.SERA Collier 05/10/25 20:18 ROMI NEWTON May 10, 2025 17:54
[2025-05-10] MEDS ORDERED: KEN0.1O TOP (17:57)
[2025-05-10 18:24] VITALS: TEMP 97.3
== END 2025-05-10 18:34 | disposition home or self-care (01) ==
LOC: ER 17:30
DX: L23.9 Allergic contact dermatitis, unspecified cause (principal)
CPT/HCPCS: 99283; Q0177

== ENCOUNTER 2025-07-09 15:43 | Emergency (ER) | payer MEDICARE, MEDICAID ==
[~2025-07-09] VITALS: Ht 188 cm; Wt 79.5 kg
[~2025-07-09 15:43] MED LIST changes: -DOXY100C43 PO
[2025-07-09 15:50] VITALS: BP 141/80; PULSE 78; TEMP 97.9; O2SAT 100
[2025-07-09 18:13] VITALS: RESP 16
[2025-07-09] MEDS: silver sulfadiazine cream 50gm TP ONE (18:13)
[2025-07-09] MEDS: ketorolac trometh 15mg/ml vial 15 MG/ML ML IM ONE (18:13)
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
[2025-07-09] MEDS ORDERED: CEPH-585 PO (18:45)
== END 2025-07-09 21:59 | disposition home or self-care (01) ==
LOC: ER 15:43
DX: T23.231A Burn of second degree of multiple right fingers (nail), not including thumb, initial encounter (principal); T31.0 Burns involving less than 10% of body surface; X08.8XXA Exposure to other specified smoke, fire and flames, initial encounter; Y93.89 Activity, other specified; Y92.89 Other specified places as the place of occurrence of the external cause; Y99.8 Other external cause status
CPT/HCPCS: 16000; 96372; 99283; A6258; A6402; A6449; J1885; Z7610; A6446

== ENCOUNTER 2025-07-28 14:58 | Emergency (ER) | payer MEDICARE, MEDICAID ==
[~2025-07-28] VITALS: Ht 188 cm; Wt 76.0 kg
[2025-07-28 15:08] VITALS: BP 132/82; PULSE 82; RESP 16; TEMP 98.8; O2SAT 100
[2025-07-28] MEDS ORDERED: CEPH-585 PO (15:22)
--- NOTE | 2025-07-28 15:24 | Physician Documentation ---
HPI ~ General Chief Complaint: See Chief Complaint Stated Complaint: LUMP ON CHIN Time Seen by MD: 15:14 OK to notify your PCP?: Yes Source: patient Mode of Arrival: POV Exam Limitations: no limitations History of Present Illness HPI Comments Requesting refill of Keflex 500 mg 3 times a day. He reports that he has taken 3 days of it but has since lost his prescription. Last dose was yesterday. He reports it was supposed to be a 10 day course. He does have some cellulitis to his chin as well as to his right hand and he reports that there is slight improvement since he took the antibiotic. Medication Reconciliation Allergies: Coded Allergies: No Known Allergies (Unverified , 07/28/25) Scheduled Buprenorphine HCl/Naloxone HCl (Buprenorphine-Nalox 8-2Mg Film), 1 STRIP SL DAILY Chlorhexidine Gluconate (Hibiclens), 1 EA TOP DAILY Famotidine (Famotidine), 1 TAB PO Q12H Naloxone HCl (Naloxone HCl), 1 SPR BOTHNARES ONCE Scheduled PRN ONDANSETRON ODT 4mg tablet (Ondansetron Odt), 1 TAB PO Q6H PRN PRN for nausea/vomiting ONDANSETRON ODT 4mg tablet (Ondansetron Odt), 1 TAB PO Q6H PRN PRN for nausea/vomiting Ondansetron 8mg ODT (Ondansetron Odt), 1 TAB PO TID PRN for nausea/vomiting Past Medical History Past Medical History: No Pertinent History Past Surgical History: noncontributory Alcohol Use: None Drug Use: other Review of Systems All Other Systems at this time: Reviewed and Negative Physical Exam Physical Exam Vital Signs: RN Vital Signs have been reviewed: Yes, Temperature: 98.8, Source: Temporal, Heart Rate: 82, Respiratory Rate: 16, BP: 132/82, Pulse Oximetry: 100, Weight: 76.000 Oxygen Flow Rate: 0 Pulse Oximetry Reflects: adequate oxygenation Physical Exam General: Alert, no distress. HEENT: No injection, moist mucous membranes. Neck: Full range of motion. Respiratory: No respiratory distress, equal chest rise and fall. Chest: No accessory muscle use. Cardiovascular: Regular rate and rhythm. Gastrointestinal: Nondistended. Extremities: Normal range of motion, no deformity. Neurologic: Oriented x4. Psychiatric: Normal mood and affect. Skin: Slight erythema and edema to chin and right hand. No drainage or abscess seen Progress Results/Orders Results/Orders Vital Signs 07/28/25 15:08 Temp 98.8 Pulse 82 Resp 16 B/P (MAP) 132/82 Pulse Ox 100 O2 Flow Rate 0 Medical Decision Making Additional information obtaine: old records Findings Requesting refill of Keflex. His prescription got lost. Prescribed 7 more days of Keflex 3 times a day 500 mg so you can finish off his full 10 day course since he has already taken 3 days. There was some slight improvement with his rash since starting the antibiotic. Seventy fevers, chills, nausea, vomiting or diarrhea. Stable. No signs of sepsis. Differential Dx:Considerations: Include: Adverse circumstances, Psychosocial, Medical services unavail., Medication refill, Medication non-compliance Departure Disposition: 01 HOME / SELF CARE / HOMELESS Impression: Primary Impression: Cellulitis Condition: Stable Discharge Instructions: Cellulitis, Adult, [id number] Additional Instructions: Please continue taking your antibiotics as prescribed and finish the course. Return back here for any new or worsening symptoms. Follow up with your regular doctor in the next week if there was no improvement. Referrals: NO PRIMARY CARE PROVIDER (PCP) Prescriptions Cephalexin*Monohydrate* (Keflex*) 500 Mg Capsule 1 CAP PO Q8H for 7 Days, #21 CAP Prov: LESLI VU 07/28/25 Education Educated: Patient Educated regarding: diagnosis, treatment, prognosis, need for follow up Signature Scribe Signature: . Attestation: Scribed for Lesli Vu by Lesli Syed NP . 07/28/25 15:23 Parts of this note were created using gripNote voice recognition software program. While efforts were made to correct any mistakes made by this voice recognition software program, nonsensical phrases may remain in this note. In addition, there may be errors and syntax, grammar, content and spelling. LESLI VU Jul 28, 2025 15:24
== END 2025-07-28 15:30 | disposition home or self-care (01) ==
LOC: ER 14:59
DX: L03.211 Cellulitis of face (principal); Z76.0 Encounter for issue of repeat prescription; Z79.899 Other long term (current) drug therapy
CPT/HCPCS: 99282